=== PATIENT | female | born 1985 | race Caucasian/White ===

== ENCOUNTER 2023-05-13 12:55 | Emergency (ER) | payer OTHER, SELFPAY ==
[2023-05-13] VITALS (9 sets, daily range): BP systolic 134–176; BP diastolic 89–108; PULSE 86–119; RESP 13–21; TEMP 36.4–37.1; O2SAT 98–100; BMI 22.1
--- NOTE | 2023-05-13 13:02 | DI.RAD.S_ITS ---
PROCEDURE: XR CHEST 1V INDICATIONS: chest pain TECHNIQUE: One view of the chest was acquired. COMPARISON: None. FINDINGS: Surgical changes and devices: None. Lungs and pleura: Lungs are clear. No pleural effusions or pneumothorax. Mediastinum: Mediastinal contours appear normal. Heart size is normal. Bones and chest wall: No suspicious bony lesions. Overlying soft tissues appear unremarkable. IMPRESSION: No acute cardiopulmonary pathology. Dictated by: Shabbir Delcid M.D. on 05/13/2023 at 13:50 Approved by: Shabbir Delcid M.D. on 05/13/2023 at 13:50
[2023-05-13 13:21] LABS: Add Manual Diff / Slide Review NO; Basophils Absolute Auto 0 /uL (0-100); Basophils Percent Auto 0.4 % (0-2); Eosinophils Absolute Auto 100 /uL (0-450); Eosinophils Percent Auto 0.9 % (2-4); Hemoglobin 12.9 g/dL (12.0-16.0); Lymphocytes Absolute Auto 1800 /uL (1100-4500); Lymphocytes Percent Auto 29.1 % (25-40); Mean Corpuscular HGB Conc 34.8 % (30-36); Mean Corpuscular Hemoglobin 32.4 PG (26-34); Mean Corpuscular Volume 93.1 fL (80-100); Monocytes Absolute Auto 600 /uL (0-900); Monocytes Percent Auto 10.2 % (3-14); Neutrophils Absolute Auto 3800 /uL (1500-7000); Neutrophils Percent Auto 59.4 % (50-75); Platelet Count 228 X10^3/uL (150-400); Red Blood Cell Count 3.97 X10^6/uL (4.0-5.2); White Blood Cell Count 6.3 X10^3/uL (4.5-11.0)
[2023-05-13 13:26] LABS: Prothrombin Time 11.1 SECONDS (9.4-12.5)
[2023-05-13 13:28] LABS: PTT Partial Thromboplastin Tim 29 SECONDS (25.1-36.5)
[2023-05-13 13:30] LABS: Alanine Aminotransferase 59 IU/L (<35); Albumin 4.6 g/dL (3.5-5.0); Albumin Globulin Ratio 1.2 (1.0-2.8); Alkaline Phosphatase 49 U/L (38-126); Aspartate Aminotransferase 99 IU/L (14-36); BUN Creatinine Ratio 10.8 (6-22); Bilirubin Total 0.9 mg/dL (0.2-1.3); Blood Urea Nitrogen 7 mg/dL (7-17); Calcium 10.2 mg/dL (8.4-10.2); Carbon Dioxide 24 mmol/L (22-32); Chloride 99 mmol/L (98-107); Creatine Kinase 102 U/L (30-135); Estimated Glomerular Filt Rate > 60 mL/min (>60); Globulin 3.9 g/dL (1.7-4.1); Glucose 116 mg/dL (70-100); HEMOLYSIS < 15 (0-50); Lipase 211 U/L (23-300); Magnesium 1.5 mg/dL (1.6-2.3); Potassium 3.2 mmol/L (3.4-5.1); Sodium 133 mmol/L (137-145); Total Protein 8.5 g/dL (6.3-8.2)
[2023-05-13 13:42] LABS: Troponin I < 0.012 ng/mL (0.01-0.034)
--- NOTE | 2023-05-13 13:57 | ED_ITS ---
HPI - Arrhythmia/Palpitations General Chief Complaint: Arrhythmia/Palpitations Stated Complaint: high pulse and B/P Time Seen by Provider: 05/13/23 13:34 Source: patient Mode of arrival: Ambulatory Limitations: no limitations History of Present Illness HPI narrative: This is a 37-year-old female history of chronic alcohol use, occasional cocaine use. Patient presents with complaint of feeling like her pulse is fast. She states yesterday morning she felt like it was bounding but not fast. It went away, she woke up this morning felt like it was fast she got 100-110 range with a systolic blood pressure 1 V at her mom's house with their cuff. She states it has been persistent. She did have a sensation little bit of burning like heartburn took an antacid and resolved. Denies any chest pain or pressure, no shortness of breath, no syncope or lightheadedness. No diaphoresis. No nausea no vomiting. She would 1 or 2 episodes of loose diarrhea like stools yesterday. No black or bloody stools. No dysuria urgency or frequency. No back or flank pain. She states she gets menses every 3 months secondary to her oral contraceptives. No new swelling in her extremities. No cold cough or congestion. Patient states only medications oral contraceptives. No surgeries. Allergic to penicillin. Vapes tobacco, drinks at least 5 alcoholic drinks daily did have extra alcohol with the holiday in the last several days. Denies regular drug use but states she has used cocaine in the past. She denies any other last week or 2. Denies any IV or injection drugs. She flew here from [place] for the holidays. She does note family history mom had cardiac issues at age 50+. She states that they thought it was secondary to lupus. Patient is accompanied by her . Related Data Allergies Allergy/AdvReac Type Severity Reaction Status Date / Time Penicillins Allergy Verified 05/13/23 12:59 Review of Systems Review of Systems ROS Unobtainable: All systems reviewed & are unremarkable except as noted in HPI and below Patient History Social History Smoking Status: Current some day smoker Smoking Status: Current some day smoker tobacco type: vaping alcohol intake frequency: 3 or more drinks per day Alcohol type: wine Substance Use Type: crack/cocaine Exam Narrative Exam Narrative: GEN: well nourished, well appearing female, alert and oriented x 3, patient appears to be in mild distress. HEENT: Atraumatic, pupils are equal round reactive to light, extraocular movements are intact, bilateral mild proptosis, nares are clear, there is no conjunctival pallor. Throat is clear without any exudates, erythema, tonsillar enlargement or uvular deviation HEART: Mild tachycardia regular rate and rhythm without murmur, clicks, rubs. No JVD. No edema bilateral lower extremities. LUNGS:Lungs clear to auscultation, no wheezes, rales, crackles, chest moves symmetrically ABD:bowel sounds normal, soft, non-tender, no guarding, rebound, rigidity, no masses noted, no hepatosplenomegaly :No CVA tenderness MSCL: Non-tender, no muscle atrophy, muscles strength 5/5 upper and lower extremities, full range of motion, normal gait NEURO:CN 2-12 intact, sensation normal SKIN: No rash, erythema or other skin changes. Initial Vital Signs Initial Vital Signs: Vital Signs Temperature 97.5 F L 05/13/23 12:59 Pulse Rate 116 H 05/13/23 12:59 Respiratory Rate 15 05/13/23 12:59 Blood Pressure 176/108 H 05/13/23 12:59 Pulse Oximetry 99 05/13/23 12:59 Oxygen Delivery Method Room Air 05/13/23 12:59 Course Orders Ordered: ED Orders 05/13/23 13:00 Complete Blood Count AUTO DIFF Stat Comprehensive Metabolic Panel Stat Lipase Stat Magnesium Stat PTT Partial Thromboplastin [place] Stat Prothrombin Time INR Stat Troponin & CK Cardiac Panel Stat 05/13/23 13:02 XR chest 1V Stat 05/13/23 13:08 D Dimer Stat TSH [Thyroid Stimulating Hormone] Stat 05/13/23 13:17 EKG-12 Lead Stat 05/13/23 13:50 Covid-19 + FLU A/B + RSV - PCR Stat 05/13/23 14:00 Urine Drug Screen, Rapid Stat Discontinued Medications Sodium Chloride (Normal Saline 0.9%) 1,000 mls @ 1,000 mls/hr IV BOLUS ONE Stop: 05/13/23 14:33 Last Infusion: 05/13/23 15:12 Dose: Infused Documented By: Admin: 05/13/23 14:15 Dose: 1,000 mls/hr Documented By: CTS Potassium Chloride (Potassium Chloride 20 Meq Tab) 40 meq PO NOW ONE Stop: 05/13/23 15:15 Last Admin: 05/13/23 15:22 Dose: 40 meq Documented By: SABINO Vital Signs Vital signs: Vital Signs - 8 hr 05/13/23 12:59 05/13/23 13:14 05/13/23 13:15 Temperature 97.5 F L Pulse Rate 116 H 110 H 107 H Respiratory Rate 15 13 Blood Pressure 176/108 H Pulse Oximetry 99 100 100 Oxygen Delivery Method Room Air 05/13/23 13:15 05/13/23 13:30 05/13/23 13:30 Temperature Pulse Rate 101 H Respiratory Rate 21 Blood Pressure 157/100 H 163/101 H Pulse Oximetry 100 Oxygen Delivery Method 05/13/23 14:00 05/13/23 14:02 05/13/23 14:02 Temperature Pulse Rate 119 H 101 H Respiratory Rate 15 Blood Pressure 174/105 H Pulse Oximetry 98 100 Oxygen Delivery Method 05/13/23 14:30 05/13/23 15:00 05/13/23 15:00 Temperature Pulse Rate 86 86 Respiratory Rate 18 16 Blood Pressure 134/89 Pulse Oximetry 100 98 Oxygen Delivery Method 05/13/23 15:44 Temperature 98.7 F Pulse Rate Respiratory Rate Blood Pressure Pulse Oximetry Oxygen Delivery Method MDM - Arrhythmia/Palpitations Lab Data 05/13/23 13:00 05/13/23 13:00 Labs: Lab Results 05/13/23 05/13/23 05/13/23 Range/Units 13:00 13:08 13:50 WBC 6.3 (4.5-11.0) X10^3/uL RBC 3.97 L (4.0-5.2) X10^6/uL Hgb 12.9 (12.0-16.0) g/dL Hct 37.0 (36-46) % MCV 93.1 (80-100) fL MCH 32.4 (26-34) PG MCHC 34.8 (30-36) % RDW 13.0 (11.6-14.8) % Plt Count 228 (150-400) X10^3/uL Neut % (Auto) 59.4 (50-75) % Lymph % (Auto) 29.1 (25-40) % [place] % (Auto) 10.2 (3-14) % Eos % (Auto) 0.9 L (2-4) % Baso % (Auto) 0.4 (0-2) % Neut # (Auto) 3800 (5120-4222) /uL Lymph # (Auto) 1800 (5611-8244) /uL [place] # (Auto) 600 (0-900) /uL Eos # (Auto) 100 (0-450) /uL Baso # (Auto) 0 (0-100) /uL PT 11.1 (9.4-12.5) SECONDS INR 1.0 (0.9-1.3) APTT 29 (25.1-36.5) SECONDS D-Dimer 310 (<500) ng/ml Sodium 133 L (137-145) mmol/L Potassium 3.2 L (3.4-5.1) mmol/L Chloride 99 (98-107) mmol/L Carbon Dioxide 24 (22-32) mmol/L BUN 7 (7-17) mg/dL Creatinine 0.65 (0.52-1.04) mg/dL Estimated GFR > 60 (>60) mL/min BUN/Creatinine Ratio 10.8 (6-22) Glucose 116 H (70-100) mg/dL Calcium 10.2 (8.4-10.2) mg/dL Magnesium 1.5 L (1.6-2.3) mg/dL Total Bilirubin 0.9 (0.2-1.3) mg/dL AST 99 H (14-36) IU/L ALT 59 H (<35) IU/L Alkaline Phosphatase 49 (38-126) U/L Total Creatine Kinase 102 (30-135) U/L Troponin I < 0.012 (0.01-0.034) ng/mL Total Protein 8.5 H (6.3-8.2) g/dL Albumin 4.6 (3.5-5.0) g/dL Globulin 3.9 (1.7-4.1) g/dL Albumin/Globulin Ratio 1.2 (1.0-2.8) Lipase 211 (23-300) U/L TSH 0.739 (0.47-4.68) uIU/mL U Opiates 300ng/mL cut (Negative) Ur Oxycodone Screen (Negative) Urine Methadone Screen (Negative) Ur Barbiturates Screen (Negative) U Tricyclic Antidepress (Negative) Ur Phencyclidine Scrn (Negative) Ur Amphetamines Screen (Negative) U Methamphetamines Scrn (Negative) Ur MDMA Scrn (Ecstasy) (Negative) U Benzodiazepines Scrn (Negative) Urine Cocaine Screen (Negative) U Marijuana (THC) Screen (Negative) SARS-CoV-2 (PCR) Negative (Negative) Influenza A (RT-PCR) Flu a negative (NEGATIVE) Influenza B (RT-PCR) Flu b negative (NEGATIVE) RSV (PCR) Negative (Negative) 05/13/23 Range/Units 14:00 WBC (4.5-11.0) X10^3/uL RBC (4.0-5.2) X10^6/uL Hgb (12.0-16.0) g/dL Hct (36-46) % MCV (80-100) fL MCH (26-34) PG MCHC (30-36) % RDW (11.6-14.8) % Plt Count (150-400) X10^3/uL Neut % (Auto) (50-75) % Lymph % (Auto) (25-40) % [place] % (Auto) (3-14) % Eos % (Auto) (2-4) % Baso % (Auto) (0-2) % Neut # (Auto) (6260-6544) /uL Lymph # (Auto) (6297-6981) /uL [place] # (Auto) (0-900) /uL Eos # (Auto) (0-450) /uL Baso # (Auto) (0-100) /uL PT (9.4-12.5) SECONDS INR (0.9-1.3) APTT (25.1-36.5) SECONDS D-Dimer (<500) ng/ml Sodium (137-145) mmol/L Potassium (3.4-5.1) mmol/L Chloride (98-107) mmol/L Carbon Dioxide (22-32) mmol/L BUN (7-17) mg/dL Creatinine (0.52-1.04) mg/dL Estimated GFR (>60) mL/min BUN/Creatinine Ratio (6-22) Glucose (70-100) mg/dL Calcium (8.4-10.2) mg/dL Magnesium (1.6-2.3) mg/dL Total Bilirubin (0.2-1.3) mg/dL AST (14-36) IU/L ALT (<35) IU/L Alkaline Phosphatase (38-126) U/L Total Creatine Kinase (30-135) U/L Troponin I (0.01-0.034) ng/mL Total Protein (6.3-8.2) g/dL Albumin (3.5-5.0) g/dL Globulin (1.7-4.1) g/dL Albumin/Globulin Ratio (1.0-2.8) Lipase (23-300) U/L TSH (0.47-4.68) uIU/mL U Opiates 300ng/mL cut Negative (Negative) Ur Oxycodone Screen Negative (Negative) Urine Methadone Screen Negative (Negative) Ur Barbiturates Screen Negative (Negative) U Tricyclic Antidepress Negative (Negative) Ur Phencyclidine Scrn Negative (Negative) Ur Amphetamines Screen Negative (Negative) U Methamphetamines Scrn Negative (Negative) Ur MDMA Scrn (Ecstasy) Negative (Negative) U Benzodiazepines Scrn Negative (Negative) Urine Cocaine Screen Negative (Negative) U Marijuana (THC) Screen Negative (Negative) SARS-CoV-2 (PCR) (Negative) Influenza A (RT-PCR) (NEGATIVE) Influenza B (RT-PCR) (NEGATIVE) RSV (PCR) (Negative) Point of Care Testing Test Results Negative Urine Dip Bedside Urine Glucose Negative Bedside Urine Bilirubin - Negative Bedside Urine Ketone - Negative Urine Specific [place] 1.005 Bedside Urine Occult Blood - Negative Bedside Urine pH 6.5 Bedside Urine Protein - Negative Bedside Urine Urobilinogen - Negative Bedside Urine Nitrite - Negative Bedside Urine Leukocytes - Negative Esterase Imaging Data Chest x-ray: Radiologist's Impresson: [address] [address] XRay Report Signed Patient: Christina Wang MR#: [id number] : 1985 Acct:[id number] Age/Sex: 37 / F Date of Service: 05/13/23 Loc: ED Accession Number: [id number] Procedure: XR chest 1V Ordering Provider: Diya Cool D.O. PROCEDURE: XR CHEST 1V INDICATIONS: chest pain TECHNIQUE: One view of the chest was acquired. COMPARISON: None. FINDINGS: Surgical changes and devices: None. Lungs and pleura: Lungs are clear. No pleural effusions or pneumothorax. Mediastinum: Mediastinal contours appear normal. Heart size is normal. Bones and chest wall: No suspicious bony lesions. Overlying soft tissues appear unremarkable. IMPRESSION: No acute cardiopulmonary pathology. Dictated by: Shabbir Delcid M.D. on 05/13/2023 at 13:50 Approved by: Shabbir Delcid M.D. on 05/13/2023 at 13:50 ECG Data Attestation: I personally reviewed and interpreted this ECG as follows: Prior ECG tracings: not available for review Interpretation: NSR, rate of 103, QRS 78, QTc 450. No acute ST elevation or depression noted. No priors available. MDM Narrative Medical decision making narrative: This is a 37-year-old female comes in with complaint of elevated pulse patient is slightly tachycardic 103 on EKG with no S1 Q 3 T3, patient is otherwise well- appearing. Heart rate did improve with fluids she is been slightly hypertensive. Patient has history of chronic alcohol use did have some extra over the holiday while visiting family does travel from [place] by plane and is on oral contraceptives. CBC shows no acute change, coags are negative, D-dimer is negative. Potassium 3.2 sodium is 133, creatinine 0.6 with a BUN of 7 glucose 116 Mag slightly low at 1.5 with AST ALT elevated at 99 and 59- bilirubin, negative troponin LFTs otherwise normal with a TSH is negative. Utox is negative. covid/influenza/rsv negative. Patient did receive a 1 L of fluids, patient's heart rate improved. She is ambulating in the department without issue. Workups overall negative. Discussed with patient she is had some increased alcohol intake this may be causing some he is mild irritation or heart, otherwise well-appearing. No other acute changes we noted her potassium is slightly low as well as bag. Given oral replacement of potassium here discussed can take [id number] Mag if she wishes. Discussed return precautions all questions answered. Discharge Plan Departure Patient Disposition: Home Clinical Impression: Sinus tachycardia Activity Restrictions/Additional Instructions: Your labs show very mild hypokalemia or low potassium and low magnesium. You have had some oral potassium replaced today. Make sure you are drinking plenty of fluids. Please return with new or worsening chest pain, shortness of breath, lightheadedness or passing out, new swelling of your extremities or other new or concerning changes. Referrals: Miscellaneous,Doctor, MD [Primary Care Provider] - Stand Alone Forms: Patient Portal/API
[2023-05-13] MEDS: SODIUM CHLORIDE 0.9% 1,000 ML 1000 ML IV (14:15)
[2023-05-13 14:37] LABS: Influenza A - CEPHEID Flu A NEGATIVE (NEGATIVE); Influenza B - CEPHEID Flu B NEGATIVE (NEGATIVE); Respiratory Syncytial Virus Negative (Negative)
[2023-05-13 14:38] LABS: COVID-19 CEPHEID 4-PLEX PCR Negative (Negative)
[2023-05-13 14:56] LABS: D Dimer 310 ng/ml (<500)
[2023-05-13] MEDS: POTASSIUM CHLORIDE 20 MEQ TAB 40 MEQ PO (15:22)
[2023-05-13 15:28] LABS: UR Morphine/Opiate cutoff 300 Negative (Negative); Ur Creatinine Normal (Normal); Ur Specific Gravity Normal (Normal); Urine Amphetamines Negative (Negative); Urine Barbiturates Negative (Negative); Urine Benzodiazepines Negative (Negative); Urine Cocaine Negative (Negative); Urine MDMA Negative (Negative); Urine Methadone Negative (Negative); Urine Methamphetamines Negative (Negative); Urine Oxycodone Negative (Negative); Urine Phencyclidine Negative (Negative); Urine Tetrahydrocannabinol Negative (Negative); Urine Tricyclic Antidepressant Negative (Negative); Urine pH Normal (Normal)
[2023-05-13 15:29] LABS: Thyroid Stimulating Hormone 0.739 uIU/mL (0.47-4.68)
== END 2023-05-13 15:45 | disposition home or self-care (01) ==
PROVIDERS: Emergency Provider Emergency Medicine
DX: I48.92 Unspecified atrial flutter (principal); I44.39 Other atrioventricular block; R00.0 Tachycardia, unspecified; F17.290 Nicotine dependence, other tobacco product, uncomplicated
CPT/HCPCS: 0241U; 36415; 71045; 80053; 80305; 81003; 81025; 82550; 83690; 83735; 84443; 84484; 85025; 85379; 85610; 85730; 93005; 93010; 96360; 99284